=== PATIENT | male | born 1935 | race Caucasian/White ===

== ENCOUNTER 2024-07-23 13:43 | Emergency (ER) | payer MEDICARE ==
[~2024-07-23] VITALS: Ht 177.8 cm; Wt 90.7 kg
--- NOTE | 2024-07-23 14:27 | ERN ---
General Chief Complaint: Hypertension Stated Complaint: ELEVATED BP Time Seen by MD: 14:15 History of Present Illness Initial Comments Patient comes in with complaint of hypertension. Patient states he was on amlodipine for many years. However about a week ago this was changed. He is not sure of what new medication. However started having some difficulty with high blood pressure. He states it is very normal for his blood pressure to be in the 150s. He checked it yesterday and was in the 170s. Today he was feeling a bit flushed and checked it again and it was 200. He went to his clerical dentist assistant's office. They told him that Dr. Silverio was in the hospital and sent him to the ER. Patient denies any headache or chest pain or difficulty breathing. Allergies: Coded Allergies: meperidine (Unverified Allergy, Unknown, 07/23/24) Past Medical History Past Medical History: A-Fib, High Cholesterol, Heart Disease, Hypertension, Other Medical History Other: BPH Past Surgical History: None ROS Dictation Ten systems reviewed and negative except as noted in HPI Physical Exam Physical Exam Dictation GEN: non toxic, NAD HEENT: atrumatic, PERRL, EOMI, conjunctivae normal NECK: Soft supple nontender Heart RRR, no murmurs Chest: No deformity Lungs: Lungs clear to auscultation Ab: Soft nondistended nontender Back: No midline step-offs. No gross deformity. No CVA tenderness : m/s: Moving all four extremities. No gross deformity. +1 edema. Neuro: CN 2-12 intact. Moving all four extremities. Psych: Cooperative Results Laboratory and Microbiology Lab and Micro Result Laboratory Tests Test 07/23/24 14:37 White Blood Count 7.3 K/uL (4.8-10.8) Red Blood Count 4.52 MIL/uL (4.50-6.20) Hemoglobin 13.4 g/dL (14.0-18.0) L Hematocrit 41.0 % (42-54) L Mean Corpuscular Volume 90.7 fL (79-99) Mean Corpuscular Hemoglobin 29.6 pg (27.0-33.0) Mean Corpuscular Hemoglobin Concent 32.7 g/dL (32.0-36.0) Red Cell Distribution Width 14.9 % (11.0-15.5) Platelet Count 152 K/uL (130-400) Mean Platelet Volume 9.4 fL (7.5-10.5) Immature Granulocyte % (Auto) 0.3 % (0-1) Neutrophils (%) (Auto) 64.9 % (40.0-77.0) Lymphocytes (%) (Auto) 19.0 % (21.0-51.0) L Monocytes (%) (Auto) 10.9 % (3.0-13.0) Eosinophils (%) (Auto) 4.3 % (0.0-8.0) Basophils (%) (Auto) 0.6 % (0.0-5.0) Neutrophils # (Auto) 4.7 K/uL (1.8-7.7) Lymphocytes # (Auto) 1.4 K/uL (1.0-4.8) Monocytes # (Auto) 0.8 K/uL (0.1-1.0) Eosinophils # (Auto) 0.31 K/uL (0.00-0.70) Basophils # (Auto) 0.04 K/uL (0.00-0.20) Absolute Immature Granulocyte (auto 0.02 K/uL (0-1) Nucleated Red Blood Cells 0.0 % (0.0-0.19) Sodium Level 146 mmol/L (136-145) H Potassium Level 3.6 mmol/L (3.5-5.1) Chloride Level 107 mmol/L (101-111) Carbon Dioxide Level 29 mmol/L (21-32) Blood Urea Nitrogen 16 mg/dL (7-18) Creatinine 1.3 mg/dL (0.5-1.3) Glomerular Filtration Rate Calc 54 mL/min (>90) Random Glucose 93 mg/dL (70-105) Total Calcium 8.8 mg/dL (8.5-10.1) Total Bilirubin 0.8 mg/dL (0.2-1.0) Aspartate Amino Transf (AST/SGOT) 15 U/L (10-37) Alanine Aminotransferase (ALT/SGPT) 29 U/L (12-78) Alkaline Phosphatase 83 U/L (50-136) Troponin I High Sensitivity 22 ng/L (4-75) Total Protein 7.0 g/dL (6.0-8.3) Albumin 3.6 g/dL (3.5-5.0) EKG/XRAY/US/CT/MRI EKG Comment Sinus rhythm 73 MD is a proximally 160. QRS of 91 QTC of 450 normal axis QRS complexes are narrow with good R-wave progression some nonspecific STT wave changes. Interpretation abnormal MDM Patient noted to be hypertensive here. However without other complaints or symptoms. We will check labs here. We will give clonidine. I do have a call out to patient's clerical dentist assistant make sure there was not any other concerns from the office. He did state that he did not see his clerical dentist assistant today but his office told him to go to the hospital. ED Course Orders Procedure Category Date Status Time Cbc With Differential LAB 07/23/24 Complete 14:22 Comprehensive LAB 07/23/24 Complete Metabolic Panel 14:22 Troponin I High LAB 07/23/24 Complete Sensitivity 14:22 Clonidine Hcl 0.1 Mg PHA 07/23/24 Complete Tablet (Catapres 0. 14:30 Current Medications Medications (Trade) Dose Ordered Sig/Cristo Route PRN Reason Start Time Stop Time Status Last Admin Dose Admin Clonidine HCl (CATApres 0.1 mg TAB) 0.1 mg ONCE ONCE PO 07/23/24 14:30 07/23/24 14:31 DC 07/23/24 15:23 Vital Signs Date Time Temp Pulse Resp B/P (MAP) Pulse Ox O2 Delivery O2 Flow Rate FiO2 07/23/24 15:23 72 166/78 07/23/24 15:21 98.2 72 20 166/78 98 Room Air* 0 21 07/23/24 14:38 98.2 72 20 155/82 99 Room Air* 0 21 07/23/24 13:50 98.2 71 20 205/87 99 Room Air* 0 21 07/23/24 13:46 98.2 71 20 205/87 99 Room Air 0 Patient states he has been on amlodipine longstanding. This was discontinued earlier this week and he was switched on to a unknown medication. He is not sure what it was. also not sure. Was also started on Lasix at that time. Case was discussed with Dr. Mario as clerical dentist assistant. We will restart amlodipine 5 mg b.i.d.. This may cause worsening leg edema. I did discuss this with him. He is wearing compression stockings. He has a blood pressure machine at home. Patient was given clonidine x1 here with improvement in his pressures. Patient has plenty of amlodipine. Follow up with his clerical dentist assistant next case. DX & DISP Disposition: Discharge Departure Impression: Primary Impression: HTN (hypertension) Condition: Stable Additional Instructions: Resume your amlodipine 5 mg twice a day in addition here other medications Keep blood pressure log Follow up with the clerical dentist assistant next week Referrals: MILY PEREZ MD (PCP) MOHSEN FIELDS MD Jul 23, 2024 14:27
[2024-07-23 14:42] LABS: BASOPHILS # (AUTO) 0.04 K/uL (0.00-0.20); BASOPHILS % (AUTO) 0.6 % (0.0-5.0); EOSINOPHILS # (AUTO) 0.31 K/uL (0.00-0.70); EOSINOPHILS % (AUTO) 4.3 % (0.0-8.0); IMMATURE GRANULOCYTE ABSOLUTE 0.02 K/uL (0-1); LYMPHOCYTES # (AUTO) 1.4 K/uL (1.0-4.8); MEAN CORPUSCULAR HEMOGLOBIN 29.6 pg (27.0-33.0); MEAN CORPUSCULAR HGB CONC 32.7 g/dL (32.0-36.0); MEAN CORPUSCULAR VOLUME 90.7 fL (79-99); MONOCYTES # (AUTO) 0.8 K/uL (0.1-1.0); MONOCYTES % (AUTO) 10.9 % (3.0-13.0); NEUTROPHILS # (AUTO) 4.7 K/uL (1.8-7.7); NEUTROPHILS % (AUTO) 64.9 % (40.0-77.0); PLATELET COUNT (AUTO) 152 K/uL (130-400); RED BLOOD CELL COUNT(AUTO) 4.52 MIL/uL (4.50-6.20); RED CELL DISTRIBUTION WIDTH 14.9 % (11.0-15.5); WHITE BLOOD COUNT (AUTO) 7.3 K/uL (4.8-10.8)
[2024-07-23 15:00] LABS: CREATININE 1.3 mg/dL (0.5-1.3); POTASSIUM 3.6 mmol/L (3.5-5.1)
[2024-07-23 15:09] LABS: ALBUMIN 3.6 g/dL (3.5-5.0); BILIRUBIN,TOTAL 0.8 mg/dL (0.2-1.0)
[2024-07-23 15:21] VITALS: RESP 20; TEMP 98.2; O2SAT 98
[2024-07-23 15:23] VITALS: BP 166/78; PULSE 72
[2024-07-23] MEDS: cloNIDine HCL 0.1 MG TABLET PO ONE (15:23)
--- NOTE | 2024-07-24 04:54 | EKG ---
Test Date: 2024-07-23 Test Time: 13:52:01 Pat Name: EMILIO AQUINO Department: [facility] Room: Gender: M Implementation Technician: [id number] Requested By: MOHSEN FIELDS Order Number: [id number] Reading MD: Cristobal Larios Measurements Intervals [place] Rate: 73 P: 0 CT: 44 QRS: 36 QRSD: 91 T: 95 QT: 411 QTc: 450 Interpretive Statements Sinus rhythm Atrial premature complex Nonspecific repol abnormality, inferior leads No previous ECG available for comparison Electronically Signed On 07-24-2024 08:00:20 [employer] by Cristobal Larios Please click the below link to view image of tracing.
== END 2024-07-23 15:45 | disposition home or self-care (01) ==
LOC: EDH 13:43
DX: I10 Essential (primary) hypertension (principal); I48.91 Unspecified atrial fibrillation; E78.00 Pure hypercholesterolemia, unspecified; Z88.5 Allergy status to narcotic agent
CPT/HCPCS: 36415; 80053; 84484; 85025; 93005; 99284

== ENCOUNTER → 2024-11-04 | Outpatient (CLI) | payer MEDICARE ==
[2024-11-04 09:07] LABS: BASOPHILS # (AUTO) 0.06 K/uL (0.00-0.20); BASOPHILS % (AUTO) 0.7 % (0.0-5.0); EOSINOPHILS # (AUTO) 0.21 K/uL (0.00-0.70); EOSINOPHILS % (AUTO) 2.6 % (0.0-8.0); HEMATOCRIT 40.8 % (42-54); IMMATURE GRANULOCYTE ABSOLUTE 0.03 K/uL (0-1); LYMPHOCYTES # (AUTO) 1.9 K/uL (1.0-4.8); LYMPHOCYTES % (AUTO) 23.2 % (21.0-51.0); MEAN CORPUSCULAR HEMOGLOBIN 29.2 pg (27.0-33.0); MEAN CORPUSCULAR HGB CONC 32.1 g/dL (32.0-36.0); MEAN CORPUSCULAR VOLUME 90.9 fL (79-99); MONOCYTES # (AUTO) 0.8 K/uL (0.1-1.0); NEUTROPHILS # (AUTO) 5.2 K/uL (1.8-7.7); NEUTROPHILS % (AUTO) 63.1 % (40.0-77.0); PLATELET COUNT (AUTO) 209 K/uL (130-400); RED BLOOD CELL COUNT(AUTO) 4.49 MIL/uL (4.50-6.20); RED CELL DISTRIBUTION WIDTH 14.8 % (11.0-15.5); WHITE BLOOD COUNT (AUTO) 8.2 K/uL (4.8-10.8)
[2024-11-04 09:25] LABS: ALBUMIN 3.7 g/dL (3.5-5.0); BILIRUBIN,TOTAL 0.4 mg/dL (0.2-1.0); CREATININE 1.6 mg/dL (0.5-1.3); POTASSIUM 4.1 mmol/L (3.5-5.1); TOTAL PROTEIN, SERUM 6.6 g/dL (6.0-8.3)
== END | disposition home or self-care (01) ==
LOC: LAB 08:44
PROVIDERS: ATTEND Internal Medicine Gastroenterology
DX: R10.32 Left lower quadrant pain (principal)
CPT/HCPCS: 36415; 80053; 85025

== ENCOUNTER → 2024-11-08 | Outpatient (CLI) | payer MEDICARE ==
[~2024-11-08] MED LIST: IOHEXOL-350 75 ML VIAL IV ONE
--- NOTE | 2024-11-08 11:47 | HMCIMG ---
Exam Type: CT ABDOMEN/PELVIS W/WO CONTRAS Clinical Information: Left lower quadrant pain Comparison: None Contrast: 100 cc's Isovue 370 IV, no complications or adverse reactions CT Dose Index (CTDI): 31.60 mGy Dose Length Product (DLP): 1740.80 total mGy-cm Findings: No evidence of nephro or ureterolithiasis is found. No hydronephrosis or ureteral dilatation is seen. The kidneys are atrophic and demonstrate bilateral simple cysts. The lung bases are clear. The stomach is unremarkable. It shows no wall thickening. No gross ulceration is seen. It is not overly distended. There are no surrounding inflammatory changes. No wall lesions are identified to suggest cancer. The spleen is unremarkable. It is not enlarged. The pancreas shows normal anatomy. It is not fatty replaced. It shows no lesions. The pancreatic duct is not dilated. The gallbladder is unremarkable. It shows no cholelithiasis. The gallbladder wall is normal in thickness. There is no pericholecystic fluid. The is no acute or chronic inflammation noted. The adrenal glands are unremarkable. There is no enlargement. No lesions are noted. The liver is unremarkable. It shows no focal masses. The appendix is unremarkable. It shows no evidence of inflammation. No appendicolith is seen. The small bowel is unremarkable. There is no evidence of dilatation to suggest obstruction. No evidence of adynamic ileus is seen. There is no small bowel wall thickening to suggest enteritis. The colon is unremarkable. The urinary bladder is unremarkable. There is no wall thickening to suggest tumor or inflammation. There are no intraluminal calculi. There are no diverticula. There is no evidence of chronic bladder outlet obstruction. There is no evidence of urinary bladder distention to suggest urinary retention. Umbilical hernia is seen containing only peritoneal fat. The bony and vascular structures are unremarkable for the patient's age. IMPRESSION: Chronic changes as noted above. No acute pathology. This study was performed using dose reduction techniques to include automated exposure control and/or adjustment of the mA and/or kV according to patient size.
== END | disposition home or self-care (01) ==
LOC: RAH 09:09
PROVIDERS: ATTEND Internal Medicine Gastroenterology
DX: N28.1 Cyst of kidney, acquired (principal); K42.9 Umbilical hernia without obstruction or gangrene; N26.1 Atrophy of kidney (terminal); R10.32 Left lower quadrant pain
CPT/HCPCS: 74178; Q9967